=== PATIENT | female | born 1995 | race Caucasian/White ===

== ENCOUNTER 2017-11-27 07:14 | Emergency (ER) | payer SELFPAY | END 2017-11-27 08:20 | disposition home or self-care (01) | LOC: NAV ERS 07:14 | DX: J20.9 Acute bronchitis, unspecified (principal); J02.0 Streptococcal pharyngitis; G93.2 Benign intracranial hypertension; E66.9 Obesity, unspecified; J45.909 Unspecified asthma, uncomplicated; F17.210 Nicotine dependence, cigarettes, uncomplicated; Z79.899 Other long term (current) drug therapy | CPT/HCPCS: 99283 ==

== ENCOUNTER 2018-02-01 15:32 | Emergency (ER) | payer SELFPAY | END 2018-02-01 16:34 | disposition home or self-care (01) | LOC: NAV ERS 15:32 | DX: S39.012A Strain of muscle, fascia and tendon of lower back, initial encounter (principal); J45.909 Unspecified asthma, uncomplicated; F17.210 Nicotine dependence, cigarettes, uncomplicated; E66.9 Obesity, unspecified; Z79.899 Other long term (current) drug therapy; X50.9XXA Other and unspecified overexertion or strenuous movements or postures, initial encounter; Y92.009 Unspecified place in unspecified non-institutional (private) residence as the place of occurrence of the external cause | CPT/HCPCS: 99283 ==